=== PATIENT | male | born 2000 | race Caucasian/White ===

== ENCOUNTER 2025-03-18 14:20 | Emergency (ER) | payer SELFPAY ==
[2025-03-18 14:38] VITALS: BP 147/86; PULSE 89; O2SAT 97
--- NOTE | 2025-03-18 14:38 | CT_ITS ---
FINAL REPORT TECHNIQUE: Axial images were obtained of the lumbar spine by computed tomography. Coronal and sagittal reconstruction process performed. This study was performed with techniques to keep radiation doses as low as reasonably achievable (ALARA). Individualized dose reduction techniques using automated exposure control or adjustment of mA and/or kV according to the patient''s size were employed. CLINICAL HISTORY: back pain x2 months nki FINDINGS: Lumbar vertebrae show normal height. The disc spaces are well-preserved. There is no malalignment. The facets are properly aligned. L1-2: No significant canal stenosis or neuroforaminal narrowing. L2-3: No significant canal stenosis or neuroforaminal narrowing. L3-4: Mild diffuse disc bulge with mild bilateral neuroforaminal narrowing. L4-5: Mild diffuse disc bulge with mild bilateral neuroforaminal narrowing. L5-S1: No significant canal stenosis or neuroforaminal narrowing. IMPRESSION: Degenerative disc disease at L3-4 and L4-5. Reviewed, Interpreted and Dictated by Jelani Mora MD Transcribed by Melissa Cervantes Authenticated and . [facility]
--- NOTE | 2025-03-18 14:40 | ED_ITS ---
<Statement entered by Bhavin Silver MD - 03/18/25 16:03> I was consulted by the JENNY, and we discussed the complexity of the problems being addressed. I approved the treatment and management plan for this patient's care in the emergency department, thus performing a substantive portion of the medical decision making. Bhavin Silver MD Discharge Plan Disposition Patient Disposition: Home, Self-Care Prescriptions Prescriptions: New lidocaine 5 % adhesive patch,medicated 2 patch topical DAILY Qty: 15 0RF Rx Instructions: leave on most painful area for up to 12 hrs methocarbamol 750 mg tablet 750 mg PO Q8H Qty: 30 0RF Referrals Follow up/Referrals: Provider,Referral, [Primary Care Provider, Medical] - See instructions Activity Restrictions/Add. Instructions Additional Instructions/Restrictions: You were seen today in the emergency room with complaints of low back pain. Your diagnosis includes degenerative disc disease. You may resume normal activities of daily living. Follow-up with your primary care provider and/or chiropractor as you desire. Will send prescriptions for a muscle relaxer and some lidocaine patches for pain control. Clinical Impressions Clinical Impression: Strain of lumbar region Instructions Patient Instructions: DI for Low Back Pain Print Language Print Language: Hungarian Discharge ED Provider: Bhavin Silver General Adult HPI General Chief complaint: Back Pain/Injury Stated complaint: severe/constant back-sent from chiropractor Time Seen by Provider: 03/18/25 14:29 History of Present Illness HPI narrative: Cosmo Lemos is a 24-year-old male without significant past medical history who presents emergency room today with complaints of ongoing back pain. Mr. Lemos states has been having his back pain for approximately 2 months now. Does not report any significant trauma, no fall, no car accidents. Patient states he been seeing a chiropractor for the last couple of months and has had several manipulation/adjustments done. Patient states he has had absolutely no relief and the chiropractor referred him to the emergency room for a second opinion. Patient has no radicular symptoms today. Does report occasionally, he will have some pain that goes down his left leg but it only lasts for a few seconds. No pain down his right leg. No saddle paresthesias, no numbness, tingling in any of extremities. Denies any weakness in his legs or feet. No issues walking. Just reports pain with prolonged standing, and pain with bending/stooping. Does not take any medications daily. Denies tobacco use, alcohol use, illicit drug use. No other complaints at this time. Please note that the above description of symptoms, and this electronic medical record under categorization of recalled from ER triage doctor by RN are reflective of an initial nursing assessment, however, is not reflective of my full history and physical exam that was personally taken and clarified. Consequentially, this proceeding description of symptoms, which may include the patient's cauterized chief complaint in the EMR, do not reflect my personal clinical impression, and the ultimate description of the history of present illness stated complaints should be deferred to this section of this note. Unless stated otherwise were congruent with the section of the note, additional signs, symptoms, or incongruence can be interpreted as in or accurate with my clinical impression. Related Data Previous Rx's ?Medication ?Instructions ?Recorded lidocaine 5 % topical patch 2 patch topical DAILY back pain 03/18/25 #15 ea methocarbamol 750 mg tablet 750 mg PO Q8H muscle spasm s #30 03/18/25 tabs Allergies Allergy/AdvReac Type Severity Reaction Status Date / Time azithromycin (From Zithromax) Allergy Anaphylaxis Verified 03/18/25 15:16 [facility] Disclaimer: The information contained in this section may have been updated after the patient was seen, as this information can be updated by other users. Social History Smoking Status: Current every day smoker alcohol intake: current current occupational status: employed Travel in the last 8 weeks?: None ROS Obtained: Yes Systems reviewed as appropriate & no additional complaints except as documented Physical Exam General General appearance: alert and in no apparent distress Head Head exam: atraumatic and normocephalic Eye Eye exam: Present PERRL and EOMI Chest Chest inspection: Present symmetric chest wall rise Respiratory Respiratory exam: Present normal lung sounds bilaterally Cardiovascular Cardiovascular exam: Present regular rate and normal rhythm Abdominal Exam Abdominal exam: Present soft and normal bowel sounds; Absent tenderness Extremities Exam Extremities exam: Present full ROM Back Exam Comment: Patient has tender to palpation midline spine of his lumbar region, also has tenderness palpation left side paraspinal muscles. Neurological Exam Neurological exam: Present alert, oriented X3 and other (2+ DTRs bilateral lower extremities, negative clonus) Skin Skin exam: Present warm, dry and intact Medical Decision Making Medical Records Screening: Per USPSTF and CDC recommendations, given the prevalence of disease in our region, it is our hospital?s policy to screen for HIV and viral Hepatitis for all patients aged 18 and over and those with ongoing risk factors. Suresh Inquiry Pt receiving controlled substance: No Vital Signs: 03/18/25 14:38 03/18/25 14:41 03/18/25 15:00 Temperature 98.5 F Temperature Source Oral Pulse Rate 89 75 Pulse Rate [Right] 92 H Respiratory Rate 18 Blood Pressure 147/86 H 137/88 Blood Pressure [Right Arm] 147/86 H Blood Pressure Mean [Right Arm] 106 02 Sat by Pulse Oximetry 97 98 96 Oxygen Delivery Method Room Air Room Air 03/18/25 15:30 Temperature Temperature Source Pulse Rate 76 Pulse Rate [Right] Respiratory Rate Blood Pressure 127/89 Blood Pressure [Right Arm] Blood Pressure Mean [Right Arm] 02 Sat by Pulse Oximetry 96 Oxygen Delivery Method Room Air Lab Data Lab Results 03/18/25 14:57: Urine Color Yellow, Urine Appearance Clear, Urine pH 6.0, Ur Specific [place] 1.025, Urine Protein Negative, Urine Glucose (UA) Negative, Urine Ketones Negative, Urine Blood Trace-l, Urine Nitrate Negative, Urine Bilirubin Negative, Urine Urobilinogen 0.2, Ur Leukocyte Esterase Negative, Urine RBC Occasional, Urine WBC None, Ur Squamous Epith Cells None, Urine Bacteria None, Urine Sperm Occ Orders (Tests/Meds): ORDERS Category Date Time Status CT lumbar spine wo con Stat Cat Scan 03/18/25 14:38 Taken UA [Urinalysis and Microscopic] Stat Lab 03/18/25 14:57 Completed Medical Decision Narrative: In summary patient is an 24-year-old male who presents emergency department for evaluation of back pain with occasional radiculopathy. Patient has no radiculopathy today. States that this back pain is been ongoing for the last 2 months. Denies any abdominal pain, no dysuria or hematuria noted. Patient has been at chiropractor multiple times over the last couple months without any relief. Has tried ibuprofen extensively without any relief. Reports the chiropractor sent him over here for a second opinion. Patient is hemodynamically stable upon arrival, afebrile. Unremarkable physical exam, patient does have tenderness to palpation midline lumbar spine and left paraspinal muscles.. Differential diagnosis includes discitis osteomyelitis, sciatic nerve pain, low back pain. Initial workup will be conducted with will obtain a urinalysis and a CT of his lumbar spine as he does have tenderness to palpation midline spine. Initial interventions include multimodal pain management with lidocaine patch and Tylenol. . I initial workup reviewed by me urinalysis unremarkable for UTI. CT of the lumbar spine was read as degenerative disc disease at L3-4 and L4-5. Upon repeat evaluation patient's pain was well-controlled, not reporting any additional complaints at this time. Given this, patient is appropriate for discharge. I will send him in a prescription for some lidocaine patches and some methocarbamol for muscle spasms. I would recommend him following up with his primary care and/or chiropractor if he so desires. Can resume normal activi ties while at home. Critical Care Critical Care Time Critical Care Time: No
[2025-03-18 14:41] VITALS: BP 147/86; PULSE 92; RESP 18; TEMP 36.9; O2SAT 98; BMI 41.5
[2025-03-18 15:00] VITALS: BP 137/88; PULSE 75; O2SAT 96
[2025-03-18 15:02] LABS: Microscopic, Urine URINE MICROSCOPIC (MICROSCOPIC)
[2025-03-18 15:15] LABS: Appearance,Urine CLEAR (Clear); Bilirubin,Urine Negative (Negative); Blood, Urine TRACE-L (Negative); Color,Urine YELLOW (Yellow); Glucose,Urine (UA) Negative (Negative); Ketones,Urine Negative (Negative); Leukocyte Esterase,Urine Negative (Negative); Nitrate,Urine Negative (Negative); Protein,Urine Negative (Negative); Specific Gravity, Urine 1.025 (1.005-1.030); Urobilinogen,Urine 0.2 EU/dl (0.2)
[2025-03-18 15:30] VITALS: BP 127/89; PULSE 76; O2SAT 96
[2025-03-18 15:32] LABS: RBC,Urine Occasional #/hpf (0-3); Sperm,Urine OCC /lpf
[2025-03-18 16:00] VITALS: BP 151/87; PULSE 86; O2SAT 97
[2025-03-18 16:26] VITALS: BP 132/95; PULSE 81; RESP 18; TEMP 36.9
== END 2025-03-18 16:23 | disposition home or self-care (01) ==
PROVIDERS: Nurse Practitioner Acute Care; Emergency Provider Emergency Medicine
DX: S39.012A Strain of muscle, fascia and tendon of lower back, initial encounter (principal); F17.210 Nicotine dependence, cigarettes, uncomplicated
CPT/HCPCS: 72131; 81001; 99284

== ENCOUNTER 2025-07-28 13:33 | Emergency (ER) | payer SELFPAY ==
[2025-07-28 13:38] VITALS: BP 136/80; PULSE 63; RESP 18; TEMP 36.6; O2SAT 98; BMI 40.6
--- NOTE | 2025-07-28 13:42 | XR_ITS ---
FINAL REPORT CLINICAL HISTORY: abdominal pain x 1 month FINDINGS: THREE-VIEW ABDOMEN An AP view of the the chest was obtained. The lungs are clear. Heart mediastinum are within normal limits. There is no pneumothorax. Flat and upright views of the abdomen were obtained. There is a nonspecific bowel gas pattern. No abnormally dilated loops of bowel are seen. There is no free air present. No abnormal calcifications are identified. IMPRESSION: No acute cardiopulmonary process. Nonspecific bowel gas pattern. Reviewed, Interpreted and Dictated by Guillermina Slater MD Transcribed by Zabrina Castillo Authenticated and [facility]
[2025-07-28 13:55] LABS: Microscopic, Urine URINE MICROSCOPIC (MICROSCOPIC)
[2025-07-28 14:01] LABS: Hematocrit 44.1 % (42.0-52.0); Hemoglobin 15.7 g/dL (14.1-18.0); Immature Granulocytes % 0.2 %; Mean Corpuscular HGB Conc 35.6 g/dL (31.8-35.4); Mean Corpuscular Hemoglobin 30.1 pg (27.0-31.2); Mean Corpuscular Volume 84.5 fl (80-94); Nucleated Red Blood Cells % 0 %; Platelet Count 316 K/mm3 (142-424); Red Blood Count 5.22 M/mm3 (4.60-6.20); Red Cell Distribution Width-SD 35.9 fL; White Blood Count 10.1 K/mm3 (4.8-10.8)
[2025-07-28 14:13] LABS: Albumin Level 4.2 g/dl (3.5-5.0); Chloride 102 mmol/L (98-107); Potassium 3.9 mmoL/L (3.5-5.1); Sodium 137 mmol/L (136-145)
[2025-07-28 14:15] LABS: Alanine Aminotransferase 29 U/L (12-78); Aspartate Amino Transferase 30 U/L (17-59)
[2025-07-28 14:16] LABS: Albumin/Globulin Ratio 1.3 (1.1-1.8); Alkaline Phosphatase 61 U/L (38-126); Anion Gap 13.9 mEq/L (5-15); Bilirubin,Total 0.7 mg/dl (0.2-1.3); Calcium 9.6 mg/dl (8.4-10.2); Carbon Dioxide 25 mmol/L (22.0-30.0); Globulin 3.3 g/dL (1.3-3.2); Glucose 139 mg/dl (74-100); Lipase 28 U/L (23-300); Total Protein,Serum 7.5 g/dl (6.3-8.2)
[2025-07-28 15:00] VITALS: BP 149/93; PULSE 73; RESP 18; TEMP 36.8; O2SAT 97
[2025-07-28 15:11] LABS: Bilirubin,Urine Negative (Negative); Color,Urine YELLOW (Yellow); Glucose,Urine (UA) Negative (Negative); Ketones,Urine Negative (Negative); Leukocyte Esterase,Urine Negative (Negative); PH,Urine 7.0 (5.0-8.5); Protein,Urine Negative (Negative); Specific Gravity, Urine 1.020 (1.005-1.030); Urobilinogen,Urine 0.2 EU/dl (0.2)
[2025-07-28 15:12] LABS: Bacteria,Urine Trace /lpf; WBC,Urine Occasional #/hpf (0-3)
--- NOTE | 2025-07-28 15:37 | CT_ITS ---
PROCEDURE INFORMATION: Exam: CT Abdomen And Pelvis With Contrast Exam date and time: 07/28/2025 4:38 PM Age: 25 years old Clinical indication: Abdominal pain; Additional info: B/l upper abd pain, palpable lymph nodes on abd TECHNIQUE: Imaging protocol: Computed tomography of the abdomen and pelvis with contrast. Radiation optimization: All CT scans at this facility use at least one of these dose optimization techniques: automated exposure control; mA and/or kV adjustment per patient size (includes targeted exams where dose is matched to clinical indication); or iterative reconstruction. Contrast material: ISOVUE; Contrast volume: 75 ml; Contrast route: IV; COMPARISON: CR XR ACUTE ABDOMEN SERIES 07/28/2025 2:24 PM FINDINGS: Lungs: There is a pulmonary parenchymal calcification in the left lower lobe consistent with remote granulomatous organism exposure. Minor left basilar streaky opacities suggest atelectasis or parenchymal scarring. Pleural spaces: There are no pleural effusions. Heart: The visualized portions of the heart are unremarkable. There is no evidence of pericardial fluid collections. Liver: There is diffuse decrease in hepatic/liver parenchymal density consistent with fatty infiltration. There are minor regions of focal parenchymal sparing adjacent to the gallbladder fossa. Gallbladder and biliary ducts: The gallbladder is normal. Pancreas: The pancreas is normal. Spleen: The spleen is normal. Adrenal glands: The adrenal glands are normal. Kidneys and ureters: The kidneys are normal. Stomach and bowel: The stomach is normal. The duodenum is unremarkable. The colon is normal. And opacify a loops of nondilated within range of normal. Appendix: A normal appendix is identified. Intraperitoneal space: No evidence of intraperitoneal free air. There is no evidence of free intraperitoneal or pelvic fluid. Vasculature: There is no evidence of an aortic aneurysm. Lymph nodes: Calcified left hilar lymph nodes indicate prior granulomatous disease. There is no evidence of pathologic adenopathy. Urinary bladder: The bladder is normal. Reproductive: The prostate and seminal vesicles are normal. Bones/joints: There is no evidence of acute fracture. Soft tissues: No significant soft tissue edema. IMPRESSION: Fatty hepatic infiltration.
--- NOTE | 2025-07-28 16:15 | ED_ITS ---
Discharge Plan Disposition Patient Disposition: Home, Self-Care Condition: Good Prescriptions Prescriptions: No Action lidocaine 5 % adhesive patch,medicated 2 patch topical DAILY Qty: 15 0RF Rx Instructions: leave on most painful area for up to 12 hrs methocarbamol 750 mg tablet 750 mg PO Q8H Qty: 30 0RF Referrals Follow up/Referrals: Provider,Giuliano, [Primary Care Provider, Medical] - See instructions Uriah Alvarez II, MD [Staff Physician, Gastroenterology] - See instructions Activity Restrictions/Add. Instructions Additional Instructions/Restrictions: Your CT scan and labs today were normal. I want you to follow-up with Dr. Alvarez in the gastroenterology clinic for further evaluation of your abdominal pain. If you have any new or worsening symptoms please return to the emergency department for further evaluation Clinical Impressions Clinical Impression: Chronic generalized abdominal pain Instructions Patient Instructions: DI for Acute Abdominal Pain Print Language Print Language: Serbian Discharge ED Provider: Isak Lazo Adult HPI General Chief complaint: Abdominal Pain Stated complaint: Pain and knots across torso Time Seen by Provider: 07/28/25 13:48 Mode of Arrival: Ambulatory Source of Information: Patient Description of Symptoms (Recalled from ER Triage Doc. by RN): Pt presents for evaluation of intermittent abdominal x 1 month and knots under his skin on the left side History of Present Illness HPI narrative: This is a 25-year-old male patient, with past medical history of asthma, who is presenting to the emergency department today for evaluation of abdominal pain. Patient states that he has had lymph nodes on his bilateral rib cages for several years and over the course of the last month he has developed bilateral upper quadrant abdominal pain. He is not experiencing much in the way of additional gastrointestinal symptoms such as nausea, vomiting, diarrhea, hematochezia, or melena. He is also not experiencing any urinary symptoms. Pain is not postprandial in nature, but he does state that his pain is worse with certain movements. Pain does not radiate into his back or into his chest Related Data Previous Rx's ?Medication ?Instructions ?Recorded lidocaine 5 % topical patch 2 patch topical DAILY back pain 03/18/25 #15 ea methocarbamol 750 mg tablet 750 mg PO Q8H muscle spasm s #30 03/18/25 tabs Allergies Allergy/AdvReac Type Severity Reaction Status Date / Time azithromycin (From Zithromax) Allergy Anaphylaxis Verified 07/26/25 13:36 [facility] Disclaimer: The information contained in this section may have been updated after the patient was seen, as this information can be updated by other users. Social History (Updated 03/18/25 @ 15:59 by Rosibel Odell APRN) Smoking Status: Current every day smoker alcohol intake: current current occupational status: employed Travel in the last 8 weeks?: None Have you lived/traveled outside [place] in past 30 days?: No Contact w/someone who lives/traveled outside US past 30 days?: No Exposure to someone with infectious disease in past 14 days?: No Do you have a fever (greater than 100.4 F or 38 C)?: No Have you tested positive for COVID-19?: No Exposed to someone with COVID-19 in past 14 days?: No Do you have a sore throat?: No Do you have a cough?: No Do you have any weakness?: No Do you have any diarrhea?: No Are you experiencing any unusual bleeding?: No Do you have any muscle aches/pain?: No Do you have any abdominal pain?: Yes Are you experiencing loss of taste or smell?: No ROS Obtained: Yes Systems reviewed as appropriate & no additional complaints except as documented Physical Exam General General appearance: other (See MDM) Respiratory Respiratory exam: Present other (See MDM) Cardiovascular Cardiovascular exam: Present other (See MDM) Neurological Exam Neurological exam: Present other (See MDM) Medical Decision Making Medical Records Medical records reviewed: Yes I reviewed the patient's medical records. Screening: Per USPSTF and CDC recommendations, given the prevalence of disease in our region, it is our hospital?s policy to screen for HIV and viral Hepatitis for all patients aged 18 and over and those with ongoing risk factors. Suresh Inquiry Pt receiving controlled substance: No Suresh was queried for this patient: No Vital Signs: 07/28/25 13:38 07/28/25 15:00 Temperature 98 F 98.3 F Temperature Source Oral Oral Pulse Rate 73 Pulse Rate [Right] 63 Respiratory Rate 18 18 Blood Pressure 149/93 H Blood Pressure [Right Arm] 136/80 Blood Pressure Mean [Right Arm] 98 Blood Pressure Source [Right Arm] Automatic Cuff Blood Pressure Position [Right Arm] Sitting 02 Sat by Pulse Oximetry 98 97 Oxygen Delivery Method Room Air Lab Data Lab Results 07/28/25 13:48: WBC 10.1, RBC 5.22, Hgb 15.7, Hct 44.1, MCV 84.5, MCH 30.1, MCHC 35.6 H, RDW 11.9, Plt Count 316, MPV 9.4, Neut % (Auto) 60.5, Lymph % (Auto) 30.0, [place] % (Auto) 5.0, Eos % (Auto) 3.6, Baso % (Auto) 0.7, Neut # (Auto) 6.1, Lymph # (Auto) 3.0, [place] # (Auto) 0.5, Eos # (Auto) 0.4, Baso # (Auto) 0.1, Sodium 137, Potassium 3.9, Chloride 102, Carbon Dioxide 25, Anion Gap 13.9, BUN 13, Creatinine 0.80, Estimated Creat Clear 211, Estimated GFR 116, Est GFR ( Amer) 140, Glucose 139 H, Calcium 9.6, Total Bilirubin 0.7, AST 30, ALT 29, Alkaline Phosphatase 61, Total Protein 7.5, Albumin 4.2, Globulin 3.3 H, Albumin/Globulin Ratio 1.3, Lipase 28 07/28/25 13:50: Urine Color Yellow, Urine Appearance Clear, Urine pH 7.0, Ur Specific [place] 1.020, Urine Protein Negative, Urine Glucose (UA) Negative, Urine Ketones Negative, Urine Blood Trace-i, Urine Nitrate Negative, Urine Bilirubin Negative, Urine Urobilinogen 0.2, Ur Leukocyte Esterase Negative, Urine RBC None, Urine WBC Occasional, Ur Squamous Epith Cells None, Urine Bacteria Trace 07/28/25 13:48 07/28/25 13:48 Orders (Tests/Meds): ED MEDICATIONS Generic Name Dose Route Start Last Admin Trade Name Freq PRN Reason Stop Dose Admin Sodium Chloride 10 ml 07/28/25 16:40 07/28/25 16:41 Sodium Chloride 0.9% 10ml Syr (Rad Only) IV 08/27/25 16:39 10 ml NEEDED PRN Administration Maintain IV Site Discontinued Medications Generic Name Dose Route Start Last Admin Trade Name Freq PRN Reason Stop Dose Admin Iopamidol 75 ml 07/28/25 16:40 07/28/25 16:41 Iopamidol-370 (76%);100ml Bottle IV 07/28/25 16:41 75 ml ONCE ONE Administration ORDERS Category Date Time Status CT abdomen pelvis w con Stat Cat Scan 07/28/25 15:37 Completed XR acute abdomen series Stat Exams 07/28/25 13:42 Completed Complete Blood Count Auto Diff Stat Lab 07/28/25 13:48 Completed Comprehensive Metabolic Panel Stat Lab 07/28/25 13:48 Completed Lipase Stat Lab 07/28/25 13:48 Completed Urinalysis and Microscopic Stat Lab 07/28/25 13:50 Completed Medical Decision Narrative: In summary, this is a 25-year-old male patient who is presenting to the emergency department today for evaluation of 1 month of bilateral upper quadrant abdominal pain as well as lymph nodes appreciable over his bilateral rib cages since the age of 19. Patient's comorbidities include a past medical history of asthma. On initial evaluation of the patient they were resting comfortably in no acute distress and nontoxic in appearance. They are hemodynamically stable, saturating well room air, and are neurologically intact. On physical examination the patient is appropriately alert and interactive with a GCS of 15. His heart and lungs are clear to auscultation bilaterally. He has mild bilateral upper quadrant abdominal tenderness. No lower abdominal tenderness. No evidence of jefferson peritonitis. His mucous membranes appear moist and he is well-hydrated. There are some nodules that are present over the left rib cage which do feel consistent with lymphadenopathy. He does not have any axillary or submandibular/anterior cervical lymphadenopathy. Emergent diagnosis includes cholelithiasis, choledocholithiasis, pancreatitis, splenic infarction, other intra-abdominal catastrophes. Workup was initiated with hematologic labs as well as a CT scan of the abdomen and pelvis. Labs were personally interpreted by me and demonstrate no evidence of leukocytosis or actionable anemia. No electrolyte derangements or acute kidney injury. His lipase is normal. Urinalysis was also obtained and demonstrates no evidence of urinary tract infection. CT scan of the abdomen and pelvis was obtained and demonstrates fatty infiltration of the liver with no other acute abnormality. There is no abdominal wall lymphadenopathy noted on the scan. On repeat assessment the patient he is resting comfortably and is in no acute distress. Given that his pain has not acutely evolved or changed and has been chronic for a month I do not feel that this is an acute life-threatening emergency, Especially in the setting of a normal CT scan. We will have him follow-up in the outpatient setting with Dr. Alvarez for further evaluation over his abdominal pain Critical Care Critical Care Time Critical Care Time: No
[2025-07-28 16:18] LABS: Blood Urea Nitrogen 13 mg/dl (9-20); Creatinine Clearance Estimated 211 mL/min (50-200); Creatinine,Serum 0.80 mg/dl (0.66-1.25); Estimated Glomerular Filt Rate 116 ml/min (>60); GFR (African American) 140 ML/MIN (>60)
[2025-07-28] MEDS: SODIUM CHLORIDE 0.9% 10ML SYR (RAD ONLY) 10 ML IV (16:41)
[2025-07-28] MEDS: IOPAMIDOL-370 (76%);100ML BOTTLE 75 ML IV (16:41)
[2025-07-28 18:51] VITALS: BP 144/88; PULSE 74; RESP 18; TEMP 36.8; O2SAT 99
== END 2025-07-28 18:52 | disposition home or self-care (01) ==
PROVIDERS: Emergency Medicine; Emergency Provider Student in an Organized Health Care Education/Training Program
DX: R10.84 Generalized abdominal pain (principal); G89.29 Other chronic pain; F17.210 Nicotine dependence, cigarettes, uncomplicated
CPT/HCPCS: 74021; 74177; 80053; 81001; 83690; 85025; 99284; Q9967